=== PATIENT | male | born 1980 | race Caucasian/White ===

== ENCOUNTER 2020-01-18 14:53 | Emergency (ER) | payer BC, SELFPAY ==
--- NOTE | ~2020-01-18 | XR_ITS ---
EXAMINATION: XR chest 2V 01/18/2020 15:19 INDICATION: Chest pain. Hypertension. PROCEDURE: 2 view chest COMPARISON: No prior studies for comparison. FINDINGS: The lungs are clear. The cardiomediastinal silhouette is within normal limits. There are no pleural effusions. There is no pneumothorax suspected. IMPRESSION: 1: NO ACUTE CARDIOPULMONARY DISEASE. Reviewed, dictated and finalized at location A.
--- NOTE | 2020-01-18 14:55 | ECG_ITS ---
Measurements Intervals [place] Rate: 68 P: 53 VA: 142 QRS: 15 QRSD: 102 T: 27 QT: 400 QTc: 425 Interpretive Statements SINUS RHYTHM WITH SINUS ARRHYTHMIA NORMAL ECG Electronically Signed On 01-18-2020 15:25:18 CDT by Sandor Olivas D.O.
[2020-01-18 14:56] VITALS: BP 141/105; PULSE 73; RESP 16; TEMP 36.9; O2SAT 99
[2020-01-18 15:09] LABS: Basophils Percent Auto 0.4 % (0.2-1.2); Eosinophils Percent Auto 0.4 % (0-4.4); Hemoglobin 14.6 g/dL (14.0-18.0); Immature Granulocyte Absolute 0.03 K/mm3 (0.00-0.031); Immature Granulocyte Percent A 0.3 % (0-0.5); Lymphocytes Absolute Auto 2.17 K/mm3 (0.9-3.2); Lymphocytes Percent Auto 23.8 % (18.3-44.2); Mean Corpuscular HGB Conc 34.8 g/dl (32-36); Mean Corpuscular Hemoglobin 28.6 pg (26-34); Mean Corpuscular Volume 82.2 fl (80-100); Mean Platelet Volume 11.1 fl (7.4-10.4); Neutrophils Absolute Auto 5.8 K/mm3 (1.3-6.7); Neutrophils Percent Auto 64.1 % (45.5-73.1); Platelet Count Result 316 k/mm3 (150-375); Red Blood Count 5.11 M/mm3 (4.6-6.20); Red Cell Distribution Width 12.5 % (11.5-14.5); White Blood Count 9.1 K/mm3 (4.5-10.0)
[2020-01-18] MEDS: ASPIRIN 81 MG CHEWABLE TABLET 324 MG PO (15:13)
--- NOTE | 2020-01-18 15:16 | PC.NURSE ---
Pt to XRAY via stretcher on tele monitor.
[2020-01-18 15:17] VITALS: PULSE 73
[2020-01-18 15:18] LABS: Prothrombin Time 12.9 Seconds (11.1-14.7)
[2020-01-18 15:19] LABS: Partial Thromboplastin Time 28.6 SECONDS (22.3-36.8)
[2020-01-18 15:22] LABS: Anion Gap 10 mmol/L (8-16); Blood Urea Nitrogen 17 mg/dL (9-20); Calcium 9.1 mg/dL (8.4-10.2); Carbon Dioxide 26 mmol/L (22-30); Chloride 102 mmol/L (98-107); Estimated CRCL calculation 80 ml/min; Estimated Glomerular Filt Rate > 60; Glucose 148 mg/dL (75-110); Potassium 3.7 mmol/L (3.4-5.0); Sodium 138 mmol/L (137-145)
[2020-01-18 15:33] LABS: Troponin I < 0.012 ng/mL (0.000-0.034)
--- NOTE | 2020-01-18 16:00 | ED.CHESTPAIN ---
HPI - Chest Pain General Chief Complaint: Chest Pain Stated Complaint: chest pain lt Time Seen by Provider: 01/18/20 15:07 Source: patient Mode of arrival: ambulatory Limitations: no limitations History of Present Illness HPI narrative: 39 years old white male, insignificant past medical history, presents with left upper chest, left shoulder left side neck pain worse with breathing, and certain movement. The above symptoms wake patient up in the middle of the night, intermittent. Patient had a lot of physical work yesterday putting furniture together during the daytime. Patient denies any fever, chills, nausea, vomiting, shortness of breath, COVID-19 exposure. Patient does not smoke or drink, patient does not have family history of coronary disease. Related Data Allergies Allergy/AdvReac Type Severity Reaction Status Date / Time No Known Allergies Allergy Verified 11/28/18 17:46 Review of Systems Review of Systems: Narrative: CONSTITUTIONAL: Denies fever, chills, or sweats. EYES: Denies visual changes, redness, or discharge. ENT: Denies rhinorrhea, congestion, sore throat, or otalgia. CARDIOVASCULAR: Denies chest pain, palpitations, or edema. RESPIRATORY: Denies cough or dyspnea. GASTROINTESTINAL: Denies abdominal pain, nausea, vomiting, or diarrhea. GENITOURINARY: Denies dysuria or hematuria. SKIN: Denies rash or itching. MUSCULOSKELETAL: Denies back pain, joint pain, or myalgia. NEUROLOGIC: Denies headache, numbness, or weakness. PSYCHIATRIC: Denies anxiety or depression. [facility] Social History Social History (Updated 01/18/20 @ 16:03 by Joe Oneil MD) Smoking status: Never smoker Second hand tobacco smoke exposure: No Alcohol intake: never Exam Narrative: Exam Narrative: General appearance: Well-developed, well-nourished Skin: Normal color Head: Normocephalic, nontraumatic Eyes: Clear conjunctiva ENT: Oropharynx normal, ears normal, nose normal Neck: Supple, nontender Chest and respiratory: Airway patent, no respiratory distress, no accessory muscle use Heart: Regular rate/rhythm Abdomen: Soft, nontender, no organomegaly, quiet bowel sounds Vascular: Normal peripheral pulses, normal capillary refill. Musculoskeletal: Normal range of motion, nontender back, mild diffuse tenderness left upper chest and left shoulder with movement. Neurologic: Alert and oriented ?3, [employer] is normal as tested, no gross motor deficit Course Course Emergency Course: Resolved Vital Signs Vital signs: Vital Signs Temperature 36.9 C 01/18/20 14:56 Pulse Rate 73 01/18/20 14:56 Respiratory Rate 16 01/18/20 14:56 Blood Pressure 141/105 H 01/18/20 14:56 Pulse Oximetry 99 01/18/20 14:56 Temperature 36.9 C 01/18/20 14:56 Pulse Rate 73 01/18/20 15:17 Respiratory Rate 16 01/18/20 14:56 Blood Pressure 141/105 H 01/18/20 14:56 Pulse Oximetry 99 01/18/20 14:56 MDM - Chest Pain MDM Narrative Medical decision making narrative: Chest wall and left shoulder muscular strain/sprain is my concern Labs, chest x-ray, EKG ordered. EKG showed normal sinus rhythm at 68 bpm, no acute abnormality. Chest x-ray within normal limits, blood work-up showed no acute abnormality. Patient will be discharged on naproxen and Flexeril and physical activity. Lab Data Result diagrams: 01/18/20 15:02 01/18/20 15:02 Labs: Lab Results 01/18/20 01/18/20 01/18/20 Range/Units 15:02 15:02 15:02 WBC 9.1 (4.5-10.0) K/mm3 RBC 5.11 (4.6-6.20) M/mm3 Hgb 14.6 (14.0-18.0) g/dL Hct 42.0 (42.0-52.0) % MCV 82.2 (80-100) fl MCH 28.6 (26-34) pg MCHC 34.8 (32-36) g/dl RDW 12.5 (11.5-14.5
[2020-01-18 16:08] VITALS: BP 133/95; PULSE 85; RESP 14; O2SAT 98
[2020-01-18 16:17] VITALS: BP 133/95; PULSE 74; RESP 16; O2SAT 98
== END 2020-01-18 16:18 | disposition home or self-care (01) ==
PROVIDERS: Emergency Provider Emergency Medicine; PCP Internal Medicine
DX: R07.89 Other chest pain (principal)
CPT/HCPCS: 36415; 71046; 80048; 84484; 85025; 85610; 85730; 93005; 99283; 99284; A9270

== ENCOUNTER 2025-03-07 20:00 | Emergency (ER) | payer BC, SELFPAY ==
[2025-03-07 20:03] VITALS: BP 140/93; PULSE 78; RESP 20; TEMP 36.8; O2SAT 98
--- OUTSIDE RECORDS SUMMARY | 2025-03-07 20:46 | XMS_ITS | Clinical Summary ---
Author [place] [facility] [place] [address] Address [address] [place] [id number] Care Team Providers Care Robotics Technician Name Role Phone Unknown, Notinfile Primary Care Provider Unavail able Allergies No known active allergies Medications omeprazole OTC (PriLOSEC OTC) 20 mg EC tablet Take 1 tablet (20 mg total) by mouth daily Active vit D3-vit K-ixafdmmzy-vabc [id number] posy-mwv-ob-mg tablet Take by mouth Active Active Problems No known active problems Surgical History Surgery Date Site/Laterality Comments HERNIA REPAIR 1999 Medical History Medical History Date Comments GERD (gastroesophageal reflux disease) 2006 Social History Tobacco Use Types Packs/Day Years Used Date Smoking Tobacco: Never Cigarettes Smokeless Tobacco: Never Tobacco Cessation:Counseling Given: Not Answered Sex and Gender Information Value Date Recorded Sex Assigned at Not on file Legal Sex Male 3:27 PM [employer] Gender Identity Not on file Sexual Orientation Not on file Obstetrics History Last Filed Vital Signs Vital Sign Reading Time Taken Comments Blood Pressure 130/92 05/22/2024 2:10 PM [employer] Pulse 62 05/22/2024 2:10 PM [employer] Temperature 36.9 C (98.4 F) 05/22/2024 2:10 PM [employer] Respiratory Rate 20 05/22/2024 2:10 PM [employer] Oxygen Saturation 98% 05/22/2024 2:10 PM [employer] Inhaled Oxygen Concentration - - Weight 83.5 kg (184 lb) 10/21/2024 1:20 PM CDT Height 175.3 cm (5' 9) 10/21/2024 1:20 PM CDT Body Mass Index 27.17 10/21/2024 1:20 PM CDT Plan of Treatment Health Maintenance Due Date Last Done Comments Depression Screening 1980 Hepatitis C Screening 1980 DTaP/Tdap/Td Vaccine (1 - Tdap) 1991 Varicella Vaccines (1 of 2 - 13+ 2-dose series) 1993 Hepatitis B Screening 1998 Regular Well Visit/Exam 18-64 1998 HPV Vaccines (1 - 3-dose SCD M series) 2007 Influenza Vaccine (#1) 2025 Pneumococcal vaccine <65 Aged Out No longer eligible based on patient's age to complete this topic Insurance [employer] ACCESS CHOICE [employer] Care Teams Robotics Technician Relationship Specialty Start Date End Date Unknown, Notinfile PCP - General 07/23/23
== END 2025-03-07 21:17 | disposition left against medical advice (07) ==
PROVIDERS: PCP Internal Medicine
DX: T25.222A Burn of second degree of left foot, initial encounter (principal); X10.2XXA Contact with fats and cooking oils, initial encounter
CPT/HCPCS: 99199